=== PATIENT | female | born 1940 | race Caucasian/White ===

== ENCOUNTER 2016-04-23 22:46 | Emergency (ER) | payer MEDICARE ==
[2016-04-23] MEDS ORDERED: METHYLPRED SOD SUCCINATE 125 MG VIAL ONE (23:07)
[2016-04-23] MEDS ORDERED: ALBUTEROL NEB 2.5 MG/3 ML VIAL.NEB NEB ONE (23:15)
[2016-04-23 23:22] LABS: ABSOLUTE NEUTROPHIL COUNT 8.9 K/mm3 (1.8-7.7); BASO % 0.2 % (0.2-1.0); EOS % 0.3 % (0.9-2.9); HEMATOCRIT 29.4 % (37.0-47.0); HEMOGLOBIN 9.6 gm/l (12.0-16.0); IMM NEUT% 0.3 % (0-1); LYMPH # 1.5 (1.0-4.8); LYMPH % 12.6 % (15-45); MEAN CELL VOLUME 91.9 fl (81.0-99.0); MEAN CORPUSCULAR HGB CONC 32.7 g/dl (33.0-37.0); MEAN PLATELET VOLUME 8.6 fl (7.4-10.4); MONO # 1.1 (0.0-0.8); MONO % 9.3 % (4-12); NEUT % 77.3 % (43-75); PLATELET COUNT 602 K/mm3 (130-400); RED CELL DISTRIBUTION WIDTH 14.1 % (11.5-14.5)
[2016-04-23 23:38] LABS: CALCIUM 8.8 mg/dL (8.6-10.3)
--- NOTE | 2016-04-24 13:33 | RAD ---
CHEST - 2 VIEWS COMPARISON: Chest 2 views, 03/15/2016 HISTORY: Increased shortness of breath. FINDINGS: Views: Frontal and lateral chest Lungs: Hyperinflated. Heart and vessels: Normal Trachea and bronchi: Normal Mediastinum and fide: Normal Costophrenic sulci: Normal Chest wall and bones: Degenerative changes in the spine. No acute problems. Upper abdomen: Surgical clips in the right upper quadrant. IMPRESSION: No acute finding. Emphysema.
== END 2016-04-24 00:18 | disposition home or self-care (01) ==
LOC: ED 22:46
DX: J44.1 Chronic obstructive pulmonary disease with (acute) exacerbation (principal); I25.10 Atherosclerotic heart disease of native coronary artery without angina pectoris; F17.210 Nicotine dependence, cigarettes, uncomplicated; Z95.5 Presence of coronary angioplasty implant and graft
CPT/HCPCS: 83880; 85025; 80048; 84484; 71020; 94640; 99283 ×2; 96374; J2930

== ENCOUNTER 2016-06-04 00:55 | Emergency (ER) | payer MEDICARE ==
[2016-06-04] MEDS ORDERED: IOPAMIDOL 370 (76%) 100 ML VIAL IV ONE (00:56)
[2016-06-04 01:36] LABS: ABSOLUTE NEUTROPHIL COUNT 7.4 K/mm3 (1.8-7.7); BASO # 0.1 K/mm3 (0.0-0.2); BASO % 0.7 % (0.2-1.0); EOS # 0.8 (0.0-0.5); EOS % 6.9 % (0.9-2.9); HEMATOCRIT 31.8 % (37.0-47.0); HEMOGLOBIN 10.3 gm/l (12.0-16.0); IMM NEUT% 0.2 % (0-1); LYMPH # 1.8 (1.0-4.8); LYMPH % 16.7 % (15-45); MEAN CELL VOLUME 94.6 fl (81.0-99.0); MEAN CORPUSCULAR HEMOGLOBIN 30.7 pg (27.0-31.0); MEAN CORPUSCULAR HGB CONC 32.4 g/dl (33.0-37.0); MEAN PLATELET VOLUME 8.6 fl (7.4-10.4); MONO # 0.8 (0.0-0.8); MONO % 7.7 % (4-12); NEUT % 67.8 % (43-75); PLATELET COUNT 509 K/mm3 (130-400); RED CELL DISTRIBUTION WIDTH 14.9 % (11.5-14.5)
[2016-06-04] MEDS ORDERED: PANTOPRAZOLE SODIUM 40 MG VIAL IV ONE (01:40)
[2016-06-04] MEDS ORDERED: METHYLPRED SOD SUCCINATE 125 MG VIAL ONE (01:40)
[2016-06-04 01:45] LABS: ALB/GLOB RATIO 1.3 (>1.0); ALBUMIN 3.9 gm/dL (3.5-5.7); CALCIUM 9.2 mg/dL (8.6-10.3)
[2016-06-04] MEDS ORDERED: ALBUTEROL/IPRATROPIUM 2.5/0.5 MG 3 ML/EACH DOSE ONE (01:47)
[2016-06-04 01:48] LABS: TROPONIN I < 0.01 ng/ml (0.0-0.06)
[2016-06-04 01:52] LABS: CKMB ISOENZYME 3.3 ng/ml (0.6-6.3)
--- NOTE | 2016-06-04 09:38 | RAD ---
06/04/2016 9:34 AM CHEST - 2 VIEWS History: Chest pain and shortness of breath. Comparison: 04/23/2016 Findings: Two views of the chest are obtained. The lungs are clear with out effusion or pneumothorax. The cardiomediastinal silhouette is unremarkable.. The osseous structures are intact.. IMPRESSION: No acute intrathoracic process.
--- NOTE | 2016-06-04 10:20 | CT ---
INDICATION: Chest pain and shortness of breath. COMPARISON: Plain films earlier on the same day TECHNIQUE: Helical scan mode CT of the Thorax with 2 mm collimated images were obtained after uneventful intravenous contrast administration of 80 of [id number]. Sagittal and coronal reformations with high resolution lung algorithm images were also created at this time. Maximal intensity projection images and 3-D volumetric sequences were created at a separate, dedicated workstation. DLP: 296.5 FINDINGS: There are no pulmonary arterial filling defects. Severe emphysematous changes are noted with the predominant upper lobe distribution. Scattered pulmonary nodules measuring upward 5 mm are present. Lungs are otherwise clear. No pleural effusion. The central airways are widely patent. There is no axillary, mediastinal or hilar adenopathy. The heart and great vessels opacify normally. Limited assessment of the abdomen demonstrates large renal cysts. Additionally there is ectasia of the abdominal aorta measuring upward 2.9 cm on the last image. This is not fully evaluated in consideration for further imaging is warranted to assess for AAA. Calcifications are noted within the pancreas likely relating to prior chronic pancreatitis Multilevel degenerative changes of the spine are present. IMPRESSION: 1. Negative for pulmonary embolism. 2. Borderline aneurysm involving the abdominal aorta. This is not completely visualized and further imaging is warranted to exclude AAA. 3. Emphysematous changes with other incidental findings as above. Preliminary report was provided by [employer]Rad at approximately 0455 hours on 06/04/2016.
== END 2016-06-04 06:28 | disposition home or self-care (01) ==
LOC: ED 00:55
DX: J44.1 Chronic obstructive pulmonary disease with (acute) exacerbation (principal); R19.7 Diarrhea, unspecified; F17.210 Nicotine dependence, cigarettes, uncomplicated
CPT/HCPCS: 83690; 83880; 85379; 85025; 82553; 80053; 84484; 71020; 71275; 94640; 96375; 99284 ×2; 96374; 93005; C9113; J2930; Q9967